=== PATIENT | male | born 1955 | race Caucasian/White ===

== ENCOUNTER 2021-04-01 06:20 | Day surgery (SDC) | payer MEDICARE ==
[~2021-04-01] VITALS: Ht 172.7 cm; Wt 83.7 kg
[~2021-04-01 06:20] MED LIST: ACIDOPHILUS PROB1 MG PO; ALBU90OI INH; Benadryl25 MG; CLAR500CR; DESO.25TC TOP; METO25ER PO; Protopic100 G1 TP; [UNRECOGNIZED DRUG - OTHER] PO
--- NOTE | 2021-04-01 07:24 | NUR ---
04/01/21 0724 Ashley Dorantes ONE DROP OF TRETRACAINE AT 0636 IN LEFT EYE ONE DROP OF PLEDGET AT 0639 IN LEFT EYE
== END 2021-04-01 08:15 | disposition home or self-care (01) ==
LOC: ORSCSDS 06:20
PROVIDERS: Ophthalmology
PROC: 08RK3JZ Replacement of Left Lens with Synthetic Substitute, Percutaneous Approach (ICD-10-PCS; principal; 2021-04-01 07:30)
DX: H25.12 Age-related nuclear cataract, left eye (principal); I10 Essential (primary) hypertension; J45.909 Unspecified asthma, uncomplicated; Z79.899 Other long term (current) drug therapy
CPT/HCPCS: J1580; J2001; J2250; J3010; J3301; J3370; J7040; V2632

== ENCOUNTER → 2022-09-15 | Outpatient (CLI) | payer MEDICARE | END | disposition home or self-care (01) | LOC: LAB SHORT 13:29 → LAB 13:29 | PROVIDERS: Hospitalist | DX: Z12.5 Encounter for screening for malignant neoplasm of prostate (principal) | CPT/HCPCS: G0103 ==

== ENCOUNTER → 2023-12-08 | Outpatient (CLI) | payer MEDICARE ==
[~2023-12-08] MED LIST changes: +BENADRYL25 M1 PO; +CEPH500 PO; +FAMO20 PO; +PRED20 PO
[2023-12-08 14:47] LABS: Albumin/Globulin Ratio 1.2 (0.8-1.8); Bilirubin, Total 1.1 mg/dL (0.1-1.0); Bun/Creatinine Ratio 13.9 (12.0-20.0); Calcium, Blood 9.1 mg/dL (8.5-10.1); Creatinine, Blood 0.86 mg/dL (0.60-1.20); Globulin, Blood 3.4 g/dL (2.2-4.0); Potassium, Blood 3.8 mmol/L (3.5-5.5); Total Protein, Blood 7.4 g/dL (6.4-8.2)
== END | disposition home or self-care (01) ==
LOC: LAB 14:07 → LAB SHORT 14:07
PROVIDERS: Hospitalist
DX: R82.998 Other abnormal findings in urine (principal)
CPT/HCPCS: 80053